=== PATIENT | female | born 1980 | race Caucasian/White ===

== ENCOUNTER 2021-07-24 22:31 | Inpatient (IN) ==
[2021-07-25] MEDS ORDERED: Naloxone 0.4 MG/ML INJ IVP PRN ×2 (02:57→07:20)
[2021-07-25] MEDS ORDERED: *HR* OxyCODONE Immed Rel 5 MG TABLET PO PRN (02:57)
[2021-07-25] MEDS ORDERED: Ondansetron 4 MG/2 ML VIAL IVP PRN ×2 (02:57→07:20)
[2021-07-25] MEDS ORDERED: Lidocaine -MPF 2% 5 ML VIAL ONE (03:19)
[2021-07-25] MEDS ORDERED: *HR* Midazolam HCl 2 MG/2 ML VIAL ONE (03:19)
[2021-07-25] MEDS ORDERED: *HR* Propofol 200 MG/20 ML VIAL IVP ONE (03:19)
[2021-07-25] MEDS ORDERED: *HR* Succinylcholine 200 MG/10 ML VIAL IVP ONE (03:19)
[2021-07-25] MEDS ORDERED: *HR* Rocuronium Bromide 50 MG/5 ML VIAL ONE (03:19)
[2021-07-25] MEDS ORDERED: Lidocaine -MPF 4% 5 ML AMPUL ONE (03:19)
[2021-07-25] MEDS ORDERED: *HR* FentaNYL (PF) 100 MCG/2 ML VIAL ONE (03:19)
[2021-07-25] MEDS ORDERED: Ondansetron 4 MG/2 ML VIAL ONE (03:19)
[2021-07-25] MEDS ORDERED: *HR* HYDROmorphone PF 0.5 MG/0.5 ML SYRINGE IVP PRN ×2 (03:23→07:20)
[2021-07-25] MEDS ORDERED: *HR* Meperidine 25 MG/ML SYRINGE IVP PRN ×2 (03:23→07:20)
[2021-07-25] MEDS ORDERED: Promethazine 6.25 MG in Water for inj. (sterile) 20 ML IVPB PRN ×2 (03:23→07:20)
[2021-07-25] MEDS ORDERED: Acetaminophen IV 1,000 MG/100 ML BAG IVPB ONE (04:24)
[2021-07-25] MEDS ORDERED: ceFAZolin 2,000 MG in Water for inj. (sterile) 20 ML IVP ONE (04:56)
[2021-07-25] MEDS ORDERED: Sugammadex Sodium 200 MG/2 ML VIAL IV ONE (05:55)
[2021-07-25] MEDS ORDERED: *HR* HYDROmorphone (PF) 1 MG/ML SYRINGE IVP PRN (06:13)
[2021-07-25] MEDS ORDERED: 0.9 % Sodium Chloride 1,000 ML IVC SCH (06:15)
[2021-07-25] MEDS ORDERED: Pantoprazole 40 MG VIAL IVP SCH (09:00)
[2021-07-25] MEDS ORDERED: Acetaminophen IV 1,000 MG/100 ML BAG IVPB SCH (12:00)
[2021-07-25] MEDS: 0.9 % Sodium Chloride 1,000 ML IVC SCH (13:03)
[2021-07-25] MEDS: *HR* Heparin 5,000 UNIT/ML VIAL SQ SCH (17:50)
[2021-07-26] MEDS: 0.9 % Sodium Chloride 1,000 ML IVC SCH ×2 (02:51→17:48)
[2021-07-26] MEDS: *HR* Heparin 5,000 UNIT/ML VIAL SQ SCH ×2 (05:12→17:48)
[2021-07-26] MEDS: Morphine Sulfate 2 MG/ML SYRINGE IVP PRN ×2 (08:58→15:09)
[2021-07-26] MEDS: Chloraseptic Spray 177 ML BOTTLE MM PRN (21:07)
[2021-07-27] MEDS: 0.9 % Sodium Chloride 1,000 ML IVC SCH (02:31)
[2021-07-27] MEDS: Morphine Sulfate 2 MG/ML SYRINGE IVP PRN (02:32)
[2021-07-27 02:46] LABS: Hematocrit 35.6 % (35.3-44.9); Hemoglobin 11.4 g/dL (11.5-15.4); Mean Corpuscular Hemoglobin 30.6 pg (28.0-33.3); Mean Corpuscular Volume 95.4 fL (83.0-100.0); Mean Platelet Volume 11.2 fL (9.4-12.4); Platelet Count 212 K/mcL (140-400); Red Blood Count 3.73 M/mcL (3.82-4.97); Red Cell Distribution Width 11.9 % (11.5-14.5); White Blood Count 10.9 K/mcL (4.3-11.1)
[2021-07-27 02:56] LABS: BUN/Creatinine Ratio 28 (6-26); Blood Urea Nitrogen 15 mg/dL (6-20); Calcium 8.7 mg/dL (8.6-10.3); Carbon Dioxide 23 mEq/L (23-29); Chloride 106 mEq/L (98-107); Glucose 71 mg/dL (70-105); Osmolality,Calculated 291 (280-300); Potassium 3.5 mEq/L (3.5-5.1); Sodium 141 mEq/L (136-145); eGFR For African Americans > 60 (> 60); eGFR For Non-African Americans > 60 (> 60)
[2021-07-27] MEDS ORDERED: D5% in Water 250 ML IV ONE (05:45)
[2021-07-27] MEDS: *HR* Heparin 5,000 UNIT/ML VIAL SQ SCH ×2 (05:46→17:03)
[2021-07-27] MEDS: Chloraseptic Spray 177 ML BOTTLE MM PRN (05:47)
[2021-07-27] MEDS: *HR* OxyCODONE Immed Rel 5 MG TABLET PO PRN ×3 (10:17→20:01)
[2021-07-28] MEDS: *HR* Heparin 5,000 UNIT/ML VIAL SQ SCH (05:03)
[2021-07-28 06:03] LABS: Hematocrit 32.8 % (35.3-44.9); Hemoglobin 10.6 g/dL (11.5-15.4); Mean Corpuscular HGB Conc 32.3 g/dL (31.6-35.5); Mean Corpuscular Volume 92.9 fL (83.0-100.0); Mean Platelet Volume 11.6 fL (9.4-12.4); Platelet Count 214 K/mcL (140-400); Red Blood Count 3.53 M/mcL (3.82-4.97); Red Cell Distribution Width 11.5 % (11.5-14.5); White Blood Count 8.8 K/mcL (4.3-11.1)
[2021-07-28 06:47] LABS: BUN/Creatinine Ratio 22 (6-26); Blood Urea Nitrogen 10 mg/dL (6-20); Calcium 8.6 mg/dL (8.6-10.3); Carbon Dioxide 26 mEq/L (23-29); Chloride 104 mEq/L (98-107); Glucose 82 mg/dL (70-105); Osmolality,Calculated 284 (280-300); Potassium 3.8 mEq/L (3.5-5.1); Sodium 138 mEq/L (136-145); eGFR For African Americans > 60 (> 60); eGFR For Non-African Americans > 60 (> 60)
[2021-07-28 07:27] VITALS: BP 144/81; PULSE 86; TEMP 98.3; O2SAT 97
[2021-07-28] MEDS: *HR* OxyCODONE Immed Rel 5 MG TABLET PO PRN (09:15)
== END 2021-07-28 11:40 | disposition home or self-care (01) | DRG 330 ==
LOC: 3ANU
PROVIDERS: ADMIT Surgery; ATTEND Surgery